=== PATIENT | male | born 1995 | race Caucasian/White ===

== ENCOUNTER 2017-10-18 12:09 | Emergency (ER) | payer OTHER, BC ==
--- NOTE | 2017-10-18 12:25 | ER Report ---
History and Physical Time Seen By MD: 12:21 Hx. of Stated Complaint: right eye pain that started yesterday around 0800; pt has hard time today keeping eye open and has pain HPI/ROS Chief Complaint: "Something in my eye" HPI: 22-year-old male patient presents to the Emergency Department. He states , yesterday he thought something had gotten into his eye. Reports, "I just rubbed it and went about my day but then it did not go away so I went to [facility] and they gave me eye drops for pink eye." The patient reports, the eye irritation and pain has not improved within 18 hours despite using the prescribed eye drops. States he uses contact lenses but removed his lenses when the eye irritation started. He reports that he did not notice any foreign body enter the eye and states that he removes his contacts when he sleeps each night. Reports some associated nausea due to imbalance and having to move around while keeping his eyes closed. ROS Constitutional: denies fevers, chills or night sweats HEENT: denies changes in vision, denies headache, reports right sided eye irritation, reports right eye pain with itching, denies purulent drainage from the eyes Respiratory: denies difficulty breathing CV: denies chest pain GI: reports nausea, denies vomiting Allergies: Uncoded Allergies: SEASONAL (Allergy, Unknown, 10/18/17) environmentAL Home Meds Reported Medications Budesonide/Formoterol Fumarate (SYMBICORT 80-4.5 MCG INHALER) 10.2 Gm Hfa.aer.ad , 10.2 GM IH 10/18/17 Fluticasone/Salmeterol (ADVAIR HFA 230-21 MCG INHALER) 1 Inh Inh, 1 INH INH, INH 10/18/17 Fexofenadine Hcl (EUNICE ALLERGY) 60 Mg Tablet, 30 MG PO BID 10/18/17 Montelukast Sodium 5 Mg Chew Tab (SINGULAIR 5 MG CHEW TAB) 5 Mg Tab.chew, 1 TAB PO QDAY, TAB.CHEW 10/18/17 Montelukast Sodium (SINGULAIR) 10 Mg Tablet, 1 TAB PO QDAY, TAB 10/18/17 Fluticasone Prop 50 Mcg Ns (FLONASE 50 MCG NS) 16 Gm [place].susp, 1 SPRAY NS BID , BOT 10/18/17 Past Medical/Surgical History nose reset, tonsillectomy, left eye laceration, asthma, GERD, broken arm, wrist , and nose Reviewed Nurses Notes: Yes Hx Substance Use Disorder: No Hx Alcohol Use: Yes (occ.) Constitutional Vital Sign - Last 24 Hours 10/18/17 10/18/17 12:14 13:01 Temp 98.3 Pulse 87 75 Resp 17 17 B/P (MAP) 132/85 131/79 (96) Pulse Ox 94 96 O2 Delivery Room Air Room Air Physical Exam General: 22-year-old male in no acute distress, presents with both eyes closed Head: normocephalic, atraumatic Eyes: pupils BL round, equal, and reactive to light and accommodation, no drainage from BL eyes noted, right eye with corneal abrasion over the iris visualized on fluorescein eye examination Nose: midline with no rhinorrhea Throat: midline, erect, no lymphadenopathy Respiratory: CTA BL CV: Clear S1 S2, no murmurs Differential Diagnoses: corneal abrasion, foreign body, infection, optic emergency including retinal detachment. Medical Decision Making ED Course/Re-evaluation ED Course 22-year-old male patient presented to the Emergency Department with right sided eye irritation and pain. The patient was originally seen at [facility] and treated for conjunctivitis. History and physical examination was obtained. Differential diagnoses were considered and discussed with the patient. Following fluorescein eye examination it was made evident that the patient had a right sided corneal abrasion over the iris. The patient was encouraged to continue topical antibiotic therapy and seek medical attention if his symptoms do not improve within 3 to 5 days or if he experiences changes in his vision. Procedure The right eye was anesthetized with eye drops, fluorescein was introduced into the eye, the lights were dimmed and the fluorescent light made visible the right corneal abrasion. Decision to Disposition Date: Oct 18, 2017 Decision to Disposition Time: 13:15 Depart Departure Latest Vital Signs Vital Signs Date Time Temp Pulse Resp B/P (MAP) Pulse Ox O2 Delivery O2 Flow Rate FiO2 10/18/17 13:01 75 17 131/79 (96) 96 Room Air 10/18/17 12:14 98.3 Impression: Primary Impression: Corneal abrasion, right Condition: Improved Disposition: HOME OR SELF-CARE Patient Instructions: Corneal Abrasion (ED) Additional Instructions: Use eye drops as prescribed every four hours while awake. You should start to feel better in 24 hours. Return to the Emergency Department if your condition worsens. Seek medical attention if your condition does not improve in three to five days. Avoid using contacts until your eye irritation resolves. Problem Qualifiers Primary Impression: Corneal abrasion, right Encounter type: initial encounter Qualified Codes: S05.01XA - Injury of conjunctiva and corneal abrasion without foreign body, right eye, initial encounter JOSE RAND Oct 18, 2017 12:24
[2017-10-18] MEDS ORDERED: PROPARACAINE 0.5% OP 15ML BTL OD ONE (12:30)
[2017-10-18] MEDS ORDERED: MONT10TA PO (12:30)
[2017-10-18] MEDS ORDERED: FEXO-72 PO (12:30)
[2017-10-18] MEDS ORDERED: FLUT16SP19 NS (12:30)
[2017-10-18] MEDS ORDERED: BUDE10.25 IH (12:30)
[2017-10-18] MEDS ORDERED: FLUORESCEIN SOD 1 MG 1 EA STRP OD ONE (12:30)
[2017-10-18] MEDS ORDERED: ADV230RPT INH (12:30)
[2017-10-18] MEDS ORDERED: MONT5TAB PO (12:30)
[2017-10-18 13:01] VITALS: BP 131/79
== END 2017-10-18 13:06 | disposition home or self-care (01) ==
LOC: ER 12:26
DX: S05.01XA Injury of conjunctiva and corneal abrasion without foreign body, right eye, initial encounter (principal)
CPT/HCPCS: 99283